=== PATIENT | female | born 1955 | race Caucasian/White ===

== ENCOUNTER → 2017-07-29 | Outpatient (CLI) | payer OTHER ==
[~2017-07-29] MED LIST: OXYC1TAB3 PO
[2017-07-29 13:38] LABS: BASO % 0.8 %; BASO ABS # 0.04 K/uL (0-0.2); COMPLETE YES; EOS % 3.4 %; HEMATOCRIT 39.1 % (37-47); IG% 0.4 %; LYMPH % 17.7 %; LYMPH ABS # 0.94 K/uL (1.2-3.4); MEAN CELL VOLUME 93.8 fL (80-100); MEAN CORPUSCULAR HEMOGLOBIN 31.4 pg (25-34); MEAN CORPUSCULAR HGB CONC 33.5 g/dl (32-36); MEAN PLATELET VOLUME 10.8 fL (7.4-10.4); MONO % 9.2 %; NEUT % 68.5 %; PLATELET COUNT 299 K/uL (130-400); RED BLOOD COUNT 4.17 M/uL (4.2-5.4); WHITE BLOOD COUNT 5.32 K/uL (4.8-10.8)
[2017-07-29 14:39] LABS: ALT/SGPT 25 U/L (12-78); AST/SGOT 14 U/L (15-37); BLOOD UREA NITROGEN 20 mg/dl (7-18); BUN/CREATININE RATIO 32.1 (10-20); CARBON DIOXIDE 26 mmol/L (21-32); CHLORIDE 106 mmol/L (98-107); CREATININE 0.62 mg/dl (0.60-1.20); GLUCOSE 84 mg/dl (70-99); POTASSIUM 3.4 mmol/L (3.5-5.1); SODIUM 140 mmol/L (136-145)
[2017-07-29 14:41] LABS: ALB/GLOB RATIO 0.9 (0.9-2); ALKALINE PHOSPHATASE 63 U/L (45-117); CHOLESTEROL 260 mg/dl (0-200); HDL CHOLESTEROL 87 mg/dl; LDL CHOLESTEROL CALCULATED 154 mg/dl; TRIGLYCERIDES 97 mg/dl (0-150); VERY LOW DENSITY LIPOPROT CALC 19 mg/dl
== END | disposition home or self-care (01) ==
LOC: C.LAB1850 12:24
PROVIDERS: ATTEND Nurse Practitioner Adult Health
DX: Z00.00 Encounter for general adult medical examination without abnormal findings (principal); R03.0 Elevated blood-pressure reading, without diagnosis of hypertension

== ENCOUNTER → 2017-09-16 | Outpatient (CLI) | payer OTHER ==
[~2017-09-16] MED LIST changes: +OXYC-90 PO; -OXYC1TAB3 PO
--- NOTE | 2017-09-17 14:36 | MAMMOGRAPHY REPORT ---
BILATERAL DIGITAL SCREENING MAMMOGRAM TOMOSYNTHESIS WITH CAD: 09/16/2017 CLINICAL HISTORY: Routine screening. TECHNIQUE: Breast tomosynthesis in addition to standard 2D mammography was performed. Current study was also evaluated with a Computer Aided Detection (CAD) system. COMPARISON: No prior exams were available for comparison. BREAST COMPOSITION: The tissue of both breasts is heterogeneously dense, which may obscure small mas ses. FINDINGS: No suspicious masses, calcifications, or areas of architectural distortion are noted in ei ther breast. IMPRESSION: ACR BI-RADS CATEGORY 1: NEGATIVE There is no mammographic evidence of malignancy. A 1 year screening mammogram is recommended. The pa tient will receive written notification of the results. Approximately 10% of breast cancers are not detected with mammography. A negative mammographic report should not delay biopsy if a clinically suggestive mass is present. Vee Corona M.D. ah/:09/16/2017 13:13:20 Risk Investigator: Britney KOROMA)(Jaylin), [facility] letter sent: Normal 1/2 BI-RADS Code: ACR BI-RADS Category 1: Negative
== END | disposition home or self-care (01) ==
LOC: C.MAMM 11:15
PROVIDERS: ATTEND Nurse Practitioner Adult Health
DX: Z12.31 Encounter for screening mammogram for malignant neoplasm of breast (principal)

== ENCOUNTER 2018-09-08 10:26 | Inpatient (IN) ==
[2018-09-08] MEDS ORDERED: LABETALOL HCL IV 5 MG/ML 20ML IV PRN (10:46)
--- NOTE | 2018-09-08 10:57 | CT Scan Report ---
CT head/brain wo con CLINICAL HISTORY: 63 years-old Female with Stroke evaluation . Acute strokelike symptoms TECHNIQUE: Multiple axial CT images of the head were obtained without contrast. A dose lowering tech nique was utilized adhering to the principles of ALARA. CT DOSE: 537.48 mGy.cm COMPARISON: CT 01/05/2008. FINDINGS: No acute intracranial hemorrhage, midline shift, intracranial mass, hydrocephalus, territorial ischem ia or abnormal extra-axial collection. The calvarium is intact. Mild mucosal thickening of the posterior ethmoid air cells. Mastoid air clifton ls and middle ear cavities are clear. Soft tissues and orbits are unremarkable. IMPRESSION: No acute intracranial abnormality. The above report was generated using voice recognition software. It may contain grammatical, syntax o r spelling errors. Electronically signed by: Eitan Selby M.D. 09/08/2018 10:56 AM
[2018-09-08] MEDS ORDERED: SODIUM CHLORIDE 0.9% 1000ML 1,000 ML IV SCH (11:00)
[2018-09-08 11:15] LABS: Basophils # (auto) 0.02 K/uL (0-0.2); Basophils % (auto) 0.4 %; Eosinophils # (auto) 0.17 K/uL (0-0.5); Hematocrit (blood only) 42.1 % (37-47); Immature Granulocytes # (auto) 0.02 K/uL (0.00-0.02); Immature Granulocytes % (auto) 0.4 %; Lymphocytes # (auto) 1.12 K/uL (1.2-3.4); Lymphocytes % (auto) 19.9 %; Mean Corpuscular Hgb Conc 33.3 g/dL (32-36); Mean Corpuscular Volume 91.7 fL (80-100); Mean Platelet Volume 10.7 fL (7.4-10.4); Monocytes # (auto) 0.49 K/uL (0.11-0.59); Monocytes % (auto) 8.7 %; Neutrophils # (auto) 3.81 K/uL (1.4-6.5); Neutrophils % (auto) 67.6 %; Platelet Count 260 K/uL (130-400); RDW Coefficient of Variation 13.6 % (11.5-14.5); RDW Standard Deviation 45.3 fL (36.4-46.3); Red Blood Count 4.59 M/uL (4.2-5.4); White Blood Count 5.63 K/uL (4.8-10.8)
[2018-09-08 11:33] LABS: BUN Creatinine Ratio 22.2 (10-20); Blood Urea Nitrogen 17 mg/dl (7-18); Calcium 9.5 mg/dl (8.5-10.1); Carbon Dioxide 23 mmol/L (21-32); Chloride 103 mmol/L (98-107); Creatinine Clr Calc Pharmacy 73.5 ml/min; Est GFR (African American) 93.1; Est GFR (Non-African American) 80.3; Glucose 109 mg/dl (70-99); Magnesium 2.2 mg/dl (1.8-2.4); Potassium 3.6 mmol/L (3.5-5.1); Sodium 137 mmol/L (136-145)
[2018-09-08 11:37] LABS: Troponin I < 0.015 ng/ml (0-0.045)
[2018-09-08 11:38] LABS: Partial Thromboplastin Ratio 0.9; Partial Thromboplastin Time 22.8 Seconds (21.0-31.0); Prothrombin Time 9.9 Seconds (9.0-12.0)
[2018-09-08] MEDS ORDERED: ASPIRIN 325 MG ECTAB PO STA (12:02)
[2018-09-08 12:36] LABS: Appearance Urine Clear (Clear); Bacteria Urine Automated Negative (Negative); Bilirubin Urine Negative (Negative); Cast Urine Automated 0 /lpf (0-5); Color Urine Yellow; Glucose Urine UA Negative (Negative); Ketones Urine Negative (Negative); Leukocyte Esterase Urine Trace (Negative); Nitrite Urine Negative (Negative); Protein Urine Negative (Negative); Specific Gravity Urine 1.015 (1.000-1.030); Urobilinogen Urine Negative (Negative)
[2018-09-08] MEDS ORDERED: BACLOFEN 10 MG TAB PO PRN (13:55)
[2018-09-08] MEDS ORDERED: ACETAMINOPHEN 325 MG TAB PO PRN (13:55)
[2018-09-08] MEDS ORDERED: IOVERSOL 100ml IV PRN (14:33)
--- NOTE | 2018-09-08 14:49 | CT Scan Report ---
CT angio neck with con CLINICAL HISTORY: Left neck pain with stroke-like symptoms COMPARISON STUDY: No previous studies for comparison. TECHNIQUE: CT angiography was performed from the aortic arch to the skull base. MIP imaging was perfo rmed. The patient was scanned in a dynamic helical fashion during intravenous administration of 93 cc of Optiray 320. A dose lowering technique was utilized adhering to the principles of ALARA. CT DOSE: Technique: CT angiogram of the carotid and vertebral arteries was obtained using intravenous contrast and 3-D reconstruction. NASCET criteria was utilized. Findings: The right carotid revealed no evidence of aneurysm and no evidence of dissection. There is no evidenc e of hemodynamic significant stenosis. The left carotid revealed no evidence of hemodynamic significant stenosis. There is no evidence of an eurysm. There is no evidence of dissection. There is no evidence of hemodynamically significant vertebral stenosis. There is no evidence of verte bral dissection. IMPRESSION: No evidence of hemodynamically significant carotid or vertebral artery stenosis. No evidence of disse ction. Electronically signed by: Silverio Trevino M.D. 09/08/2018 2:48 PM
--- NOTE | 2018-09-08 14:54 | CT Scan Report ---
CTA ANGIOGRAPHY OF THE HEAD CLINICAL HISTORY: Left neck pain with stroke-like symptoms. COMPARISON STUDY: Head CT performed earlier today. TECHNIQUE: Helical axial images of the head were obtained following uneventful intravenous administr ation of 90 cc of Optiray 320. Automated exposure control was utilized for the study. A dose loweri ng technique was utilized adhering to the principles of ALARA. CT DOSE: 524.05 mGy.cm FINDINGS: Please note that the CTA of the neck will be reported separately. No acute intracranial hem orrhage, midline shift or mass effect is present. Ventricular system is normal. The basilar cisterns are patent. There are no extra-axial collections. There is an opacified posterior left ethmoid air ce ll. There is trace fluid within the left mastoid air cells. Orbits are unremarkable. There is moderat e plaque within the bilateral cavernous carotids without significant stenosis. No dissection within t he intracranial vessels is present. No aneurysm or abrupt vessel cut off is identified. There is feta l persistence of the left posterior cerebral artery. There is a large right posterior communicating a rtery. IMPRESSION: 1. No intracranial aneurysm or abrupt vessel cut off. 2. Moderate atherosclerotic plaque within the bilateral cavernous carotids without significant stenos is. Electronically signed by: Jeffery Bucio M.D. 09/08/2018 2:53 PM
--- NOTE | 2018-09-08 15:05 | History & Physical Report ---
Date of Service September 08, 2018 Assessment & Plan (1) Paresthesias: Parthesias on left leg and left cheek which had resolved by admission. Concern for TIA. - MRI brain - CTA head/neck - Particularly looking for dissection given the left neck pain - Telemetry - Neurology consult - Echo for PFO (2) Headache: Headaches have been ongoing for 2-3 weeks after hearing a pop when pushing a heavy box at her work place. Reports it feels "tight" and improves with some massage. - Baclofen PRN - ESR/CRP to rule out giant cell arteritis given her hip pain - Neurology consult as above (3) DVT prophylaxis: Low risk - SCDs History of Present Illness Primary Care Provider: Zoraida Viveros MD 63yo F w/ hx of head/neck cancer s/p 3 resection surgeries in 2004 who presents for headache, facial numbness, and leg pain. Per patient, has been having recurrent headaches ~1x/day for the last 3 weeks after hearing a "pop" in her neck while pushing a heavy box at work. The headaches were in the posterior, left neck for at least a week or so. She describes the pain as a sharp, stabbing, "moving" pain which then resolves on its own. However, the headaches also moved to the left temporal area within the last week or so. This morning, she reports that she woke up and her left leg had a sharp, tingling pain in the left lateral knee area which then moved up to her left hip. She looked for a bruise, but did not see one and then went back to sleep. However, during the day (~8am), she reports some numbness on the left side of her face which gradually worsened. She reported to the hospital because she was worried about a stroke. She denies any dysphagia, dysarthria, facial droop, arm or leg strength changes , and any other sensation changes. Allergies Allergy/AdvReac Type Severity Reaction Status Date / Time Penicillins Allergy Mild SWELLING Unverified 09/08/18 11:52 A CHILD naproxen Allergy Unknown TONGUE Verified 09/08/18 11:52 SWELLING Home Medications Home Medications Medication Instructions Recorded Confirmed Type No Known Home Medications 09/08/18 09/08/18 History Past Med/Surg History Medical History Cancer of head and neck Facial droop mild-d/t radical neck dissection (cancer) Surgical History History of radical dissection of left side of neck Family History Other No significant family history Social History Current Living Situation: Spouse Other Information That Helps Us Care for You: No Feels Safe at Home: Yes Safety Concerns: Feels Safe At This Time Smoking Status: Never smoker Hx Alcohol Use: Yes Alcohol Intake Frequency: holidays/special occasions only Hx Substance Use: No Beliefs That Will Affect Care: None Preferred Language: Nepali Communication 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: 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 Review of Systems Constitutional: no fever, no chills and no sweats Eyes: no diplopia Ear, Nose, Mouth, Throat: no ear trauma, no nasal discharge and no dental pain Respiratory: no cough, no chest congestion and no dyspnea Cardiovascular: no chest pain, no dyspnea on exertion, no palpitations and no syncope Gastrointestinal: no abdominal pain, no belching, no constipation, no diarrhea/ loose stools, no blood in stools and no melena Musculoskeletal: no back pain, no joint pain and no muscle weakness Integumentary: no rash, no skin ulcer and no erythema Neurologic: + tingling (Leg) and + headache(s) (See HPI); no generalized weakness, no loss of sensation, no numbness and no paresthesia Psychiatric: no depression and no anxiety Endocrine: no fatigue, no polydipsia and no polyphagia Physical Exam 2 Vital Signs (Past 24 Hours): Last Vital Signs Temp 36.6 C 09/08/18 10:32 Pulse 70 09/08/18 14:27 Resp 20 09/08/18 13:34 BP 168/86 H 09/08/18 13:34 Pulse Ox 100 09/08/18 13:34 Constitutional: WD/WN, vitals as above Eyes: EOM intact bilaterally; no conjunctival abnormality ENMT: external ear and nose normal, oropharynx normal Neck: trachea midline, no thyromegaly normal visual inspection Respiratory: normal respiratory effort, lungs clear to auscultation no respiratory distress Cardiovascular: RRR, no murmur, no edema Gastrointestinal (Abdomen): Inspection/Auscultation: abdomen normal to inspection; abdomen not distended Musculoskeletal: no cyanosis or clubbing, extremities motor strength 5/5 Skin: no rashes, warm and dry Neurologic: moves all extremities and awake; no focal motor deficits and not confused Speech / Cognition: + abnormal speech (Mild dysarthria which is at baseline per patient and family) Psychiatric: Orientation: alert, oriented to person and cooperative _ (1) Headache Headache chronicity pattern: acute headache Headache type: unspecified Intractability: not intractable Qualified Code(s): R51 - Headache
--- NOTE | 2018-09-08 15:10 | XRay Report ---
ORBIT RADIOGRAPHS 3 VIEWS HISTORY: pre-MRI screening. COMPARISON: None. FINDINGS: There are no radiopaque foreign bodies identified within the orbits. IMPRESSION: No radiopaque foreign bodies identified within the orbits. Electronically signed by: Silverio Trevino M.D. 09/08/2018 3:09 PM
--- NOTE | 2018-09-08 16:41 | Magnetic Resonance Report ---
Brain MRI WITHOUT CONTRAST HISTORY: Left-sided facial numbness. Posterior headache. Stroke-like symptoms TECHNIQUE: Multiplanar multisequence MRI of the brain was performed without the use of contrast. COMPARISON STUDY: Head CT 09/08/2018. FINDINGS: There is no mass, hematoma, midline shift, or acute infarct. The mastoid air cells are jefferson r. Scattered foci of T2 hyperintensity seen within the periventricular and subcortical white matter a re nonspecific but suggestive of mild microvascular ischemic changes. The major vascular flow voids a t the skull base are well-maintained. Partial opacification of a left posterior ethmoid air cell. The ventricles and sulci are within normal limits for age. IMPRESSION: No acute intracranial abnormality. A few scattered foci of T2 hyperintensity seen within the perivent ricular and subcortical white matter are nonspecific but favor mild microvascular ischemic change. Electronically signed by: Allen Bowles M.D. 09/08/2018 4:40 PM
[2018-09-09 06:55] LABS: Hematocrit (blood only) 40.4 % (37-47); Hemoglobin 13.6 g/dL (12.0-16.0); Mean Corpuscular Hgb Conc 33.7 g/dL (32-36); Mean Corpuscular Volume 92.2 fL (80-100); Mean Platelet Volume 10.6 fL (7.4-10.4); Platelet Count 245 K/uL (130-400); RDW Coefficient of Variation 13.9 % (11.5-14.5); RDW Standard Deviation 46.9 fL (36.4-46.3); Red Blood Count 4.38 M/uL (4.2-5.4); White Blood Count 4.74 K/uL (4.8-10.8)
[2018-09-09 07:08] LABS: Estimated Average Glucose 117 mg/dl
[2018-09-09 07:33] LABS: BUN Creatinine Ratio 21.7 (10-20); Blood Urea Nitrogen 16 mg/dl (7-18); Calcium 8.8 mg/dl (8.5-10.1); Carbon Dioxide 24 mmol/L (21-32); Chloride 107 mmol/L (98-107); Cholesterol 252 mg/dl (0-200); Creatinine Clr Calc Pharmacy 75.4 ml/min; Est GFR (African American) 96.1; Est GFR (Non-African American) 82.9; Glucose 89 mg/dl (70-99); Magnesium 2.3 mg/dl (1.8-2.4); Potassium 3.8 mmol/L (3.5-5.1); Sodium 138 mmol/L (136-145)
[2018-09-09 07:36] LABS: C Reactive Protein < 0.29 mg/dl (0-0.29); Chol HDL Ratio 3; HDL Cholesterol 76 mg/dl; LDL Cholesterol Calculated 156 mg/dl; Triglycerides 100 mg/dl (0-150); VLDL Cholesterol 20 mg/dl
[2018-09-09] MEDS ORDERED: ASPIRIN 81 MG ECTAB PO SCH (09:00)
--- NOTE | 2018-09-09 10:19 | Neurology Consultation ---
Date of Consultation September 09, 2018 Assessment & Plan (1) TIA (transient ischemic attack): This is a 63-year-old right-handed female who presents with acute onset of left facial numbness which is now resolved concerning for possible TIA. Stroke risk factors include dyslipidemia and family history. Recommendations: Recommend aspirin 81 mg daily and a statin medication for dyslipidemia Avoid hypotension and dehydration Stroke risk factor modifications and recommendations: Blood pressure recommendations for the first month post hospital discharge 150/ 90-130/80, and after that blood pressure recommendations 130/80-110/70 Total cholesterol goal 100- 200 and LDL goal less than 100 Hemoglobin A1c goal less than 7 (at goal) Encourage cardiovascular exercise at least 3 times a week for 30 minutes. From a neurological standpoint, okay to be discharged today. Follow-up in neurology clinic in 1 month for post hospital follow-up. (2) Headache: Headache appears to be mostly musculoskeletal coming from the left neck. May have a component of occipital neuralgia as well. Recommendations: Agree with NSAIDs and muscle relaxer as needed. Can also do massage therapy, chiropractic therapy, or physical therapy as needed If continues to have sharp occipital headaches in the future, could consider referral to pain management for nerve injections. (3) Leg neuralgia: Burning pain in left lateral knee and left hip area appeared to be more of a focal neuralgia. Could be musculoskeletal or focal pinched nerve. Less likely to be radiculopathy based on history and symptoms. Can also treat conservatively with NSAIDs, muscle relaxers, and physical therapy if needed. If continues to have pain in the left lower extremity, can be seen back in neurology clinic for further evaluation and possible EMG. History of Present Illness Reason for Consultation: Consultation for strokelike symptoms and headache Attending Physician: Devon Rosas MD History of Present Illness This is a 63-year-old right-handed female who presents for the above evaluation. She reports that for the last 3 weeks she has been having a sharp headache in the left occipital region that shoots up. She reports she was moving a heavy box 3 weeks ago when she felt a pop in her neck. Since then she has been having sharp shooting headaches from the left side of her neck and left occipital area going up her head. She reports that these occur every 2- 3days randomly and will last for a few seconds. No radiculopathy to symptoms down the arms. On the day of presentation she noticed at work that she had a small area of burning sensation above and lateral to her left knee. A little while later she then noted the same burning sensation in the lateral left hip. And the knee burning sensation had resolved at that point. She reports that both areas of burning sensation of left leg and then resolved and a while later she noticed that her left cheek had suddenly gone numb. She reports that that lasted for a few hours and she was seen in the emergency room because of this. She reports that 13 years ago she did have some altered sensation in the left cheek after she had surgery for her head and neck cancer. Otherwise it sounds like this was a definite change in her sensory symptoms of the left cheek unexplainably. Patient denied any facial weakness. She does have some facial asymmetry secondary to her head and neck surgery. She denied any changes with her speech. No trouble swallowing. No changes with her vision. No discernible weakness. No changes with her gait. She reports that she currently does not have a headache and has no headache history of migraine headache history in the past. When she was being evaluated she was a little bit anxious but otherwise neurologically intact. She is never had any symptoms like this previously. She does have a significant family history of a mother who had TIAs when she was 68 and a sister who also had TIAs in her 70s. No other history concerning for seizures or strokes. MRI of the brain report and images reviewed by myself. Patient had a few nonspecific T2 hyperintensities in subcortical white matter but otherwise MRI was unremarkable. No signs of acute stroke. CTA of the head and neck was notable for moderate atherosclerotic plaque in the bilateral carotids Echocardiogram was unremarkable for cardioembolic sources of stroke ESR was normal at 14, hemoglobin A1c 5.7, total cholesterol 252, LDL 156, HDL 76 , and triglycerides 100 Past medical history significant for head and neck cancer status post surgery with mild facial asymmetry due to radical neck dissection on the left Family history significant for mother and sister with TIAs Social history: Patient is employed. Independent her activities of daily living. No tobacco use. Occasional alcohol use. No illegal drug use Allergies Allergy/AdvReac Type Severity Reaction Status Date / Time Penicillins Allergy Mild SWELLING Unverified 09/08/18 11:52 A CHILD naproxen Allergy Unknown TONGUE Verified 09/08/18 11:52 SWELLING Home Medications Home Medications Medication Instructions Recorded Confirmed Type No Known Home Medications 09/08/18 09/08/18 History Patient History Medical History Cancer of head and neck Facial droop mild-d/t radical neck dissection (cancer) Surgical History History of radical dissection of left side of neck Family History Other No significant family history Social History Current Living Situation: Spouse Other Information That Helps Us Care for You: No Feels Safe at Home: Yes Safety Concerns: Feels Safe At This Time Smoking Status: Never smoker Hx Alcohol Use: Yes Alcohol Intake Frequency: holidays/special occasions only Hx Substance Use: No Beliefs That Will Affect Care: None Preferred Language: Croatian Communication Ability: Effective Punch Hand Required: No Review of Systems Complete review of systems otherwise negative except for the above-noted in HPI Physical Exam 2 Vital Signs (Past 24 Hours): Last Vital Signs Temp 36.6 C 09/09/18 07:48 Pulse 67 09/09/18 07:48 Resp 18 09/09/18 07:48 BP 127/83 09/09/18 07:48 Pulse Ox 94 09/09/18 07:48 Physical Exam: Gen.: Patient is alert and oriented in no acute distress sitting in chair Heart: Regular rate and rhythm Extremities: No gross deformities or rashes noted Neurological examination: Mental status: Patient is alert and oriented to person place and time. Able to give his own history. Attention concentration normal for the situation. Remote and recent memory intact Speech is fluent without any dysarthria or aphasia noted Cranial nerves: Visual alvarez intact. Funduscopic examination was unremarkable with no signs of papilledema. Pupils equally round and reactive to light. Extraocular muscles intact without nystagmus. No facial asymmetry noted. Mild facial asymmetry on the left but otherwise appear to have full facial movements and strength. Tongue midline. Good palatal elevation. Good shoulder shrug bilaterally. Hearing grossly intact voice. Strength: 5/5 both proximal and distal in all extremities .Tone is normal. Sensation: Grossly intact to light touch in all extremities Deep tendon reflexes: +2 in bilateral biceps and patellar. Coordination: Patient has good finger to nose without dysmetria. Station within the chair is normal. _ (1) Headache Headache chronicity pattern: acute headache Headache type: unspecified Intractability: not intractable Qualified Code(s): R51 - Headache
--- NOTE | 2018-09-09 17:52 | Discharge Summary ---
Date of Service September 09, 2018 Admission HPI Per Admitting Provider 63yo F w/ hx of head/neck cancer s/p 3 resection surgeries in 2004 who presents for headache, facial numbness, and leg pain. Per patient, has been having recurrent headaches ~1x/day for the last 3 weeks after hearing a "pop" in her neck while pushing a heavy box at work. The headaches were in the posterior, left neck for at least a week or so. She describes the pain as a sharp, stabbing, "moving" pain which then resolves on its own. However, the headaches also moved to the left temporal area within the last week or so. This morning, she reports that she woke up and her left leg had a sharp, tingling pain in the left lateral knee area which then moved up to her left hip. She looked for a bruise, but did not see one and then went back to sleep. However, during the day (~8am), she reports some numbness on the left side of her face which gradually worsened. She reported to the hospital because she was worried about a stroke. She denies any dysphagia, dysarthria, facial droop, arm or leg strength changes , and any other sensation changes. Principal Diagnosis Headache, possible TIA Discharge Exam Constitutional WD/WN, vitals as above Eyes EOM intact bilaterally; no conjunctival abnormality ENMT external ear and nose normal, oropharynx normal Neck trachea midline, no thyromegaly normal visual inspection Respiratory normal respiratory effort, lungs clear to auscultation no respiratory distress Cardiovascular RRR, no murmur, no edema Gastrointestinal (Abdomen) Inspection/Auscultation: abdomen normal to inspection; abdomen not distended Musculoskeletal no cyanosis or clubbing, extremities motor strength 5/5 Skin no rashes, warm and dry Neurologic moves all extremities and awake; no focal motor deficits and not confused Speech / Cognition: + abnormal speech (Mild dysarthria which is at baseline per patient and family) Psychiatric Orientation: alert, oriented to person and cooperative Discharge Data Allergies Allergy/AdvReac Type Severity Reaction Status Date / Time Penicillins Allergy Mild SWELLING Unverified 09/08/18 11:52 A CHILD naproxen Allergy Unknown TONGUE Verified 09/08/18 11:52 SWELLING Consultations 09/08/18 12:16 ED Decision to Admit Stat 09/08/18 13:55 Consult Neurology Routine Ordered Studies 09/08/18 10:47 CT head/brain wo con Stat 09/08/18 13:55 CT angio head w con Urgent CT angio neck with con Urgent MR brain wo con Urgent Hospital Course (1) Paresthesias: Parthesias on left leg and left cheek which had resolved by admission. Concern for TIA. MRI brain, CTA head/neck all were good. No CVA seen. Echo was done and did not show PFO. Seen by Dr. Colindres who felt this could not be ruled out as a TIA, so we started ASA 81mg and a lower-dose statin. Will follow up in 1 month with neurology. (2) Headache: Headaches have been ongoing for 2-3 weeks after hearing a pop when pushing a heavy box at her work place. Reports it feels "tight" and improves with some massage. ESR/CRP are normal, so don't think this is autoimmune. Discussed using PRN ibuprofen, baclofen, and a warm compress to help with muscle tension. Will see her PCP if the pain doesn't improve in 1-2 weeks. Total Time Total Time Spent Total Time Spent (In Minutes): 35 Total Time Includes: Examination of the Patient, Discharge Planning, Medication Reconciliation and Communication With Other Providers Discharge Plan Discharge Items Patient Disposition: Home - Self-Care Reason For Visit: POSSIBLE STROKE Discharge Diagnosis: TIA vs. headache Discharge Goals: Improve function Activity: Resume your previous activity Non-emergency contact: Primary Care Provider Call non-emergency contact if: you have any medication questions, your symptoms worsen and your pain is unusual for you Follow-up/Referrals: Luana Colindres DO [Physician] - (Please see Dr. Colindres in 1 month.) Zoraida Viveros MD [Primary Care Provider] - (Please keep your appointment with Dr. Viveros in November unless your neck pain continues, then see her sooner.) Diet: Regular Addtl Provider Instructions: Ms. Deleon, You were admitted to the hospital with left-sided headache, facial numbness, and left leg pain. We were worried about a stroke, and did testing to help rule that out. Your MRI of your head did not show any stroke which is good! We also checked the arteries in your head and neck and did not find any blockages or areas where the arteries were narrowed. This is also good! Dr. Colindres (the neurologist) saw you, and would like you to start a baby aspirin and a low-dose statin to help improve your cholesterol. You will see her again in a month to be sure you're doing well. Please use the muscle relaxer in the evenings and do not drive or operate machinery with it to be sure it does not make you tired or fatigued. For the neck pain, you can also take occasional ibuprofen, use warm water compresses, and some gentle massage, as we talked about. If it doesn't get better over 1-2 weeks, please see Dr. Viveros sooner than your November appointment. Please return to the hospital with any weakness, numbness, trouble speaking or swallowing, or any other concerning symptoms. Risk Factors for Stroke: You can reduce your chances of stroke by working with your medical provider to adopt a healthy lifestyle. Some specific ways to lower your chance of stroke are: * If you are a smoker, now is the time to stop smoking cigarettes * If you are diabetic, improve the control of your blood sugars * Avoid excessive amounts of alcohol * Control high blood pressure * Lose weight if you are overweight * Be sure to lead an active lifestyle * Eat a healthy diet low in salt, cholesterol and fat You should know about other risk factors for stroke that you are unable to control. These include: * Age 55 years or older * Male gender * Certain racial groups: , or / * Family History of Stroke, Mini stroke or Heart Attack * Sickle Cell Disease Follow Up: It is important for you to keep your follow up appointments with your medical provider. Who to Call and When: Medical Emergencies: Call 911 immediately if you experience any of the following warning signs and symptoms of Stroke: * Sudden numbness or weakness of the face, arm or leg, especially on one side of the body * Sudden confusion, trouble speaking or understanding * Sudden trouble seeing in one or both eyes * Sudden trouble walking, dizziness, loss of balance or coordination * Sudden severe headache with no cause Do not delay calling 911 if you experience any warning signs or symptoms of a stroke. Delay in seeking medical attention may affect what treatments can be given to you. . Prescriptions: New aspirin [Ecotrin Low Strength] 81 mg Tablet,Delayed Release (Dr/Ec) 81 mg PO DAILY Qty: 30 RF: 0 baclofen 10 mg Tablet 5 mg PO TID PRN (Reason: muscle spasm) Qty: 20 RF: 0 atorvastatin 20 mg tablet 20 mg PO HS Qty: 30 RF: 1 Continue No Known Home Medications RF: 0 Visit Report Forms: [facility] Stand-Alone Forms: [facility] Discharge Orders: Discharge Order (Routine); Ordered 09/09/18 Ordered By: Devon Rosas Admission Data Admit Date/Time: 09/08/18 13:13 Attending Provider: Devon Rosas Admit Provider: Devon Rosas Primary Care Provider: Zoraida Viveros Other Providers: Demetrio Pryor ; Luana Colindres Service: Medical Other Interventions: Discharge Summary Assessment (RN) Last Done: 09/09/18 11:29 DC Date/Time DO NOT enter until pt leaves facility: 09/09/18 13:52
--- NOTE | 2018-09-10 20:51 | Emergency Department Note ---
Entered by Aranza Fernandez acting as a scribe for History of Present Illness General Chief complaint: Neuro Symptoms/Deficit Stated complaint: POSSIBLE STROKE Time Seen by Provider: 09/08/18 10:36 Source: patient History of Present Illness Onset (ago): hour(s) 4 Location: head Radiation: other (back of head ) Severity: similar to prior episodes Pain Consistency: + constant Quality: + aching Associated symptoms: + other (positive burning feeling above left knee; positive burning feeling in left hip; positive left sided facial numbness; negative lightheadedness; negative vision changes; negative speech changes; positive slow speech; negative slurred speech; positive swollen face); no fever/ chills The patient is a 63 year old female who presents to the Emergency Room with complaints of a constant headache that began at 0630 this morning, 4 hours prior to arrival. The patient states that this pain begins at the base of her head and is "shooting up" the back of her head. She states that she has had this headache intermittently recently. The patient states that at this time she also noticed a burning feeling above her left knee. She states that this feeling then moved to her left hip. The patient states that then the left side of her face became numb. She states that she is able to walk but it is more difficult than usual, and denies lightheadedness, fevers, chills, vision changes , or speech changes. Per the patient's daughter, the patient's speech is slower than normal, but denies slurring speech in the patient. The patient's daughter also states that the patient's face is somewhat swollen from baseline, but denies any facial droop in the patient. 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 The patient denies any recent medication changes. Upon my evaluation, pt made a stroke alert and rushed to CT head. 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 and A total of 10 systems reviewed and were otherwise negative Physical Exam Vital Signs Vital Signs - 24 hr 09/08/18 10:32 09/08/18 10:41 09/08/18 11:17 Temperature 97.9 F Temperature Source Oral Sepsis Recent Fever Within 48 Hours No Sepsis New/Unexplained Change in Mental Status No Sepsis Action Taken by Nursing No Action Required Pulse Rate 95 H Pulse Rate [Left] 88 Respiratory Rate 18 20 Respiratory Effort / Characteristics Non-Labored Spontaneous Respiratory Depth Normal Respiratory Pattern Regular Blood Pressure 190/105 H Blood Pressure [Right Arm] 172/104 H Blood Pressure Mean 133 Blood Pressure Mean [Right Arm] 126 Blood Pressure Position Lying Pulse Oximetry 100 100 97 Oxygen Delivery Method Room Air Room Air Room Air 09/08/18 11:30 09/08/18 11:45 09/08/18 12:00 Temperature Temperature Source Sepsis Recent Fever Within 48 Hours Sepsis New/Unexplained Change in Mental Status Sepsis Action Taken by Nursing Pulse Rate Pulse Rate [Left] 75 81 75 Respiratory Rate 20 16 20 Respiratory Effort / Characteristics Non-Labored Spontaneous Respiratory Depth Normal Respiratory Pattern Regular Blood Pressure Blood Pressure [Right Arm] 171/90 H 171/86 H 159/89 H Blood Pressure Mean Blood Pressure Mean [Right Arm] 117 114 112 Blood Pressure Position Pulse Oximetry 99 97 96 Oxygen Delivery Method Room Air Room Air Room Air 09/08/18 12:14 09/08/18 12:15 09/08/18 13:34 Temperature Temperature Source Sepsis Recent Fever Within 48 Hours Sepsis New/Unexplained Change in Mental Status Sepsis Action Taken by Nursing Pulse Rate 74 Pulse Rate [Left] 77 Respiratory Rate 20 20 Respiratory Effort / Characteristics Respiratory Depth Respiratory Pattern Blood Pressure 168/86 H Blood Pressure [Right Arm] 141/94 H Blood Pressure Mean Blood Pressure Mean [Right Arm] 109 Blood Pressure Position Pulse Oximetry 100 100 Oxygen Delivery Method Room Air Room Air Room Air GENERAL: alert, well appearing, well nourished, no distress, non-toxic, obvious post surgical changes to the head and neck EYE EXAM: normal conjunctiva, PERRL and EOM's grossly intact OROPHARYNX: no exudate, no erythema, lips, buccal mucosa, and mucous membranes are moist. Tongue deviation to the right. Post-surgical abnormalities to the left soft palette and posterior pharynx. NECK: supple, no nuchal rigidity, no adenopathy, non-tender. Mild left face and neck post operative deformity. LUNGS: Clear to auscultation. Normal chest wall mechanics HEART: no murmurs, S1 normal and S2 normal ABDOMEN: abdomen soft, non-tender, normo-active bowel sounds, no masses, no rebound or guarding. BACK: Back is symmetrical on inspection and there is no deformity, no midline tenderness, no CVA tenderness. SKIN: no rashes and no bruising UPPER EXTREMITIES: upper extremities are grossly normal. FROM, nml pulses b/l. Equal 5/5 strength. LOWER EXTREMITIES: No pitting edema. Weakness to the left lower extremity. No ataxia. Subjective altered sensation to the left lower extremity. Normal pulses. NEURO EXAM: Normal sensorium, cranial nerves II-XII intact, normal speech, no weakness of arms, no weakness of legs. NIHSS <4 if accounting for family description that facial abnormalities and speech are normal post surgery. Course 1033: Past medical records reviewed. The patient was evaluated in room C9, and a complete history and physical examination were performed. 1047: The patient was moved to room A1. 1049: I discussed the case with Dr. Jacobsen Neurology and informed him of the patient's symptoms. 1112: The patient is being evaluated by Dr. Jacobsen Neurology. Pt not a tPA candidate. 1205: I discussed the case with Dr. Jacobsen Neurology who recommends an MRI and MRA of the head, ASA, and admission for additional evaluation. 1216: I discussed the case with Dr. Nessa Cortez Hospitalist who will further evaluate the patient. Consultations Consultation #1: I discussed the case with Dr. Jacobsen Neurology who recommends an MRI and MRA of the head. Time: 12:05 Consultation #2: I discussed the case with Dr. Nessa Cortez Hospitalist who will further evaluate the patient. Time: 12:16 Administered Medications Discontinued Medications Aspirin (Ecotrin) 325 mg PO NOW STA Stop: 09/08/18 12:03 Last Admin: 09/08/18 12:24 Dose: 325 mg Aspirin (Ecotrin) 81 mg PO DAILY TONY Stop: 10/09/18 08:59 Last Admin: 09/09/18 08:10 Dose: 81 mg Sodium Chloride (Nss 1000ml) 1,000 mls @ 50 mls/hr IV .Q20H TONY Stop: 10/08/18 10:59 Last Infusion: 09/08/18 13:57 Dose: 0 mls/hr Infusion: 09/08/18 12:20 Dose: 150 mls/hr Admin: 09/08/18 11:06 Dose: 50 mls/hr Ioversol (Optiray 320 100ml) 93 ml IV ONCE PRN PRN Reason: Interaction Checking Stop: 09/12/18 14:32 Last Admin: 09/08/18 14:33 Dose: 93 ml Medical Decision Making Differential Diagnosis Differential includes acute coronary syndrome, myocardial infarction, CVA, TIA , anemia, infection, pneumonia, UTI, pyelonephritis, poor nutrition, dehydration , electrolyte disturbance,hypoglycemia, and others were considered. Medical Records Attestation: I reviewed the patient's medical records. Home Medications Current Medication List: was personally reviewed by me Laboratory Data Attestation: I reviewed the patient's lab results. Result diagrams: 09/09/18 06:06 09/09/18 06:06 Lab Results 09/08/18 09/08/18 09/08/18 Range/Units 10:55 10:55 10:55 WBC 5.63 (4.8-10.8) K/uL RBC 4.59 (4.2-5.4) M/uL Hgb 14.0 (12.0-16.0) g/dL Hct 42.1 (37-47) % MCV 91.7 (80-100) fL MCH 30.5 (25-34) pg MCHC 33.3 (32-36) g/dL RDW Std Deviation 45.3 (36.4-46.3) fL RDW Coeff of Abilio 13.6 (11.5-14.5) % Plt Count 260 (130-400) K/uL MPV 10.7 H (7.4-10.4) fL Immature Gran % (Auto) 0.4 % Neut % (Auto) 67.6 % Lymph % (Auto) 19.9 % Elk % (Auto) 8.7 % Eos % (Auto) 3.0 % Baso % (Auto) 0.4 % Immature Gran # (Auto) 0.02 (0.00-0.02) K/uL Neut # (Auto) 3.81 (1.4-6.5) K/uL Lymph # (Auto) 1.12 L (1.2-3.4) K/uL Elk # (Auto) 0.49 (0.11-0.59) K/uL Eos # (Auto) 0.17 (0-0.5) K/uL Baso # (Auto) 0.02 (0-0.2) K/uL ESR (0-21) mm/hr PT 9.9 (9.0-12.0) Seconds INR 1.0 (0.9-1.1) APTT 22.8 (21.0-31.0) Seconds PTT Ratio 0.9 Sodium 137 (136-145) mmol/L Potassium 3.6 (3.5-5.1) mmol/L Chloride 103 (98-107) mmol/L Carbon Dioxide 23 (21-32) mmol/L Anion Gap 11.0 (3-11) BUN 17 (7-18) mg/dl Creatinine 0.78 (0.6-1.2) mg/dl Est Cr Clr Drug Dosing 73.5 ml/min Est GFR ( Amer) 93.1 Est GFR (Non-Af Amer) 80.3 BUN/Creatinine Ratio 22.2 H (10-20) Glucose 109 H (70-99) mg/dl POC Glucose (70-99) Estimat Average Glucose mg/dl Hemoglobin A1c (4.5-5.6) % Calcium 9.5 (8.5-10.1) mg/dl Magnesium 2.2 (1.8-2.4) mg/dl Troponin I < 0.015 (0-0.045) ng/ml C-Reactive Protein (0-0.29) mg/dl Triglycerides (0-150) mg/dl Cholesterol (0-200) mg/dl LDL Cholesterol, Calc mg/dl VLDL Cholesterol, Calc mg/dl HDL Cholesterol mg/dl Cholesterol/HDL Ratio Urine Color Urine Appearance (Clear) Urine pH (4.5-7.5) Ur Specific [place] (1.000-1.030) Urine Protein (Negative) Urine Glucose (UA) (Negative) Urine Ketones (Negative) Urine Blood (Negative) Urine Nitrite (Negative) Urine Bilirubin (Negative) Urine Urobilinogen (Negative) Ur Leukocyte Esterase (Negative) Urine WBC (Auto) (0-5) /hpf Urine RBC (Auto) (0-4) /hpf U Hyaline Cast (Auto) (0-5) /lpf U Epithel Cells (Auto) (0-5) /lpf Urine Bacteria (Auto) (Negative) Blood Type Antibody Screen 09/08/18 09/08/18 09/08/18 Range/Units 10:55 11:00 12:20 WBC (4.8-10.8) K/uL RBC (4.2-5.4) M/uL Hgb (12.0-16.0) g/dL Hct (37-47) % MCV (80-100) fL MCH (25-34) pg MCHC (32-36) g/dL RDW Std Deviation (36.4-46.3) fL RDW Coeff of Abilio (11.5-14.5) % Plt Count (130-400) K/uL MPV (7.4-10.4) fL Immature Gran % (Auto) % Neut % (Auto) % Lymph % (Auto) % Elk % (Auto) % Eos % (Auto) % Baso % (Auto) % Immature Gran # (Auto) (0.00-0.02) K/uL Neut # (Auto) (1.4-6.5) K/uL Lymph # (Auto) (1.2-3.4) K/uL Elk # (Auto) (0.11-0.59) K/uL Eos # (Auto) (0-0.5) K/uL Baso # (Auto) (0-0.2) K/uL ESR (0-21) mm/hr PT (9.0-12.0) Seconds INR (0.9-1.1) APTT (21.0-31.0) Seconds PTT Ratio Sodium (136-145) mmol/L Potassium (3.5-5.1) mmol/L Chloride (98-107) mmol/L Carbon Dioxide (21-32) mmol/L Anion Gap (3-11) BUN (7-18) mg/dl Creatinine (0.6-1.2) mg/dl Est Cr Clr Drug Dosing ml/min Est GFR ( Amer) Est GFR (Non-Af Amer) BUN/Creatinine Ratio (10-20) Glucose (70-99) mg/dl POC Glucose 100 H (70-99) Estimat Average Glucose mg/dl Hemoglobin A1c (4.5-5.6) % Calcium (8.5-10.1) mg/dl Magnesium (1.8-2.4) mg/dl Troponin I (0-0.045) ng/ml C-Reactive Protein (0-0.29) mg/dl Triglycerides (0-150) mg/dl Cholesterol (0-200) mg/dl LDL Cholesterol, Calc mg/dl VLDL Cholesterol, Calc mg/dl HDL Cholesterol mg/dl Cholesterol/HDL Ratio Urine Color Yellow Urine Appearance Clear (Clear) Urine pH 7.0 (4.5-7.5) Ur Specific [place] 1.015 (1.000-1.030) Urine Protein Negative (Negative) Urine Glucose (UA) Negative (Negative) Urine Ketones Negative (Negative) Urine Blood Negative (Negative) Urine Nitrite Negative (Negative) Urine Bilirubin Negative (Negative) Urine Urobilinogen Negative (Negative) Ur Leukocyte Esterase Trace H (Negative) Urine WBC (Auto) 1-5 (0-5) /hpf Urine RBC (Auto) 0-4 (0-4) /hpf U Hyaline Cast (Auto) 0 (0-5) /lpf U Epithel Cells (Auto) 5-10 H (0-5) /lpf Urine Bacteria (Auto) Negative (Negative) Blood Type A Negative Antibody Screen NEGATIVE 09/08/18 09/09/18 09/09/18 Range/Units 21:00 06:06 06:06 WBC 4.74 L (4.8-10.8) K/uL RBC 4.38 (4.2-5.4) M/uL Hgb 13.6 (12.0-16.0) g/dL Hct 40.4 (37-47) % MCV 92.2 (80-100) fL MCH 31.1 (25-34) pg MCHC 33.7 (32-36) g/dL RDW Std Deviation 46.9 H (36.4-46.3) fL RDW Coeff of Abilio 13.9 (11.5-14.5) % Plt Count 245 (130-400) K/uL MPV 10.6 H (7.4-10.4) fL Immature Gran % (Auto) % Neut % (Auto) % Lymph % (Auto) % Elk % (Auto) % Eos % (Auto) % Baso % (Auto) % Immature Gran # (Auto) (0.00-0.02) K/uL Neut # (Auto) (1.4-6.5) K/uL Lymph # (Auto) (1.2-3.4) K/uL Elk # (Auto) (0.11-0.59) K/uL Eos # (Auto) (0-0.5) K/uL Baso # (Auto) (0-0.2) K/uL ESR 14 (0-21) mm/hr PT (9.0-12.0) Seconds INR (0.9-1.1) APTT (21.0-31.0) Seconds PTT Ratio Sodium (136-145) mmol/L Potassium (3.5-5.1) mmol/L Chloride (98-107) mmol/L Carbon Dioxide (21-32) mmol/L Anion Gap (3-11) BUN (7-18) mg/dl Creatinine (0.6-1.2) mg/dl Est Cr Clr Drug Dosing ml/min Est GFR ( Amer) Est GFR (Non-Af Amer) BUN/Creatinine Ratio (10-20) Glucose (70-99) mg/dl POC Glucose 86 (70-99) Estimat Average Glucose mg/dl Hemoglobin A1c (4.5-5.6) % Calcium (8.5-10.1) mg/dl Magnesium (1.8-2.4) mg/dl Troponin I (0-0.045) ng/ml C-Reactive Protein (0-0.29) mg/dl Triglycerides (0-150) mg/dl Cholesterol (0-200) mg/dl LDL Cholesterol, Calc mg/dl VLDL Cholesterol, Calc mg/dl HDL Cholesterol mg/dl Cholesterol/HDL Ratio Urine Color Urine Appearance (Clear) Urine pH (4.5-7.5) Ur Specific [place] (1.000-1.030) Urine Protein (Negative) Urine Glucose (UA) (Negative) Urine Ketones (Negative) Urine Blood (Negative) Urine Nitrite (Negative) Urine Bilirubin (Negative) Urine Urobilinogen (Negative) Ur Leukocyte Esterase (Negative) Urine WBC (Auto) (0-5) /hpf Urine RBC (Auto) (0-4) /hpf U Hyaline Cast (Auto) (0-5) /lpf U Epithel Cells (Auto) (0-5) /lpf Urine Bacteria (Auto) (Negative) Blood Type Antibody Screen 09/09/18 09/09/18 09/09/18 Range/Units 06:06 06:06 07:32 WBC (4.8-10.8) K/uL RBC (4.2-5.4) M/uL Hgb (12.0-16.0) g/dL Hct (37-47) % MCV (80-100) fL MCH (25-34) pg MCHC (32-36) g/dL RDW Std Deviation (36.4-46.3) fL RDW Coeff of Abilio (11.5-14.5) % Plt Count (130-400) K/uL MPV (7.4-10.4) fL Immature Gran % (Auto) % Neut % (Auto) % Lymph % (Auto) % Elk % (Auto) % Eos % (Auto) % Baso % (Auto) % Immature Gran # (Auto) (0.00-0.02) K/uL Neut # (Auto) (1.4-6.5) K/uL Lymph # (Auto) (1.2-3.4) K/uL Elk # (Auto) (0.11-0.59) K/uL Eos # (Auto) (0-0.5) K/uL Baso # (Auto) (0-0.2) K/uL ESR (0-21) mm/hr PT (9.0-12.0) Seconds INR (0.9-1.1) APTT (21.0-31.0) Seconds PTT Ratio Sodium 138 (136-145) mmol/L Potassium 3.8 (3.5-5.1) mmol/L Chloride 107 (98-107) mmol/L Carbon Dioxide 24 (21-32) mmol/L Anion Gap 7.0 (3-11) BUN 16 (7-18) mg/dl Creatinine 0.76 (0.6-1.2) mg/dl Est Cr Clr Drug Dosing 75.4 ml/min Est GFR ( Amer) 96.1 Est GFR (Non-Af Amer) 82.9 BUN/Creatinine Ratio 21.7 H (10-20) Glucose 89 (70-99) mg/dl POC Glucose 101 H (70-99) Estimat Average Glucose 117 mg/dl Hemoglobin A1c 5.7 H (4.5-5.6) % Calcium 8.8 (8.5-10.1) mg/dl Magnesium 2.3 (1.8-2.4) mg/dl Troponin I (0-0.045) ng/ml C-Reactive Protein < 0.29 (0-0.29) mg/dl Triglycerides 100 (0-150) mg/dl Cholesterol 252 H (0-200) mg/dl LDL Cholesterol, Calc 156 mg/dl VLDL Cholesterol, Calc 20 mg/dl HDL Cholesterol 76 mg/dl Cholesterol/HDL Ratio 3 Urine Color Urine Appearance (Clear) Urine pH (4.5-7.5) Ur Specific [place] (1.000-1.030) Urine Protein (Negative) Urine Glucose (UA) (Negative) Urine Ketones (Negative) Urine Blood (Negative) Urine Nitrite (Negative) Urine Bilirubin (Negative) Urine Urobilinogen (Negative) Ur Leukocyte Esterase (Negative) Urine WBC (Auto) (0-5) /hpf Urine RBC (Auto) (0-4) /hpf U Hyaline Cast (Auto) (0-5) /lpf U Epithel Cells (Auto) (0-5) /lpf Urine Bacteria (Auto) (Negative) Blood Type Antibody Screen 09/09/18 Range/Units 11:35 WBC (4.8-10.8) K/uL RBC (4.2-5.4) M/uL Hgb (12.0-16.0) g/dL Hct (37-47) % MCV (80-100) fL MCH (25-34) pg MCHC (32-36) g/dL RDW Std Deviation (36.4-46.3) fL RDW Coeff of Abilio (11.5-14.5) % Plt Count (130-400) K/uL MPV (7.4-10.4) fL Immature Gran % (Auto) % Neut % (Auto) % Lymph % (Auto) % Elk % (Auto) % Eos % (Auto) % Baso % (Auto) % Immature Gran # (Auto) (0.00-0.02) K/uL Neut # (Auto) (1.4-6.5) K/uL Lymph # (Auto) (1.2-3.4) K/uL Elk # (Auto) (0.11-0.59) K/uL Eos # (Auto) (0-0.5) K/uL Baso # (Auto) (0-0.2) K/uL ESR (0-21) mm/hr PT (9.0-12.0) Seconds INR (0.9-1.1) APTT (21.0-31.0) Seconds PTT Ratio Sodium (136-145) mmol/L Potassium (3.5-5.1) mmol/L Chloride (98-107) mmol/L Carbon Dioxide (21-32) mmol/L Anion Gap (3-11) BUN (7-18) mg/dl Creatinine (0.6-1.2) mg/dl Est Cr Clr Drug Dosing ml/min Est GFR ( Amer) Est GFR (Non-Af Amer) BUN/Creatinine Ratio (10-20) Glucose (70-99) mg/dl POC Glucose 107 H (70-99) Estimat Average Glucose mg/dl Hemoglobin A1c (4.5-5.6) % Calcium (8.5-10.1) mg/dl Magnesium (1.8-2.4) mg/dl Troponin I (0-0.045) ng/ml C-Reactive Protein (0-0.29) mg/dl Triglycerides (0-150) mg/dl Cholesterol (0-200) mg/dl LDL Cholesterol, Calc mg/dl VLDL Cholesterol, Calc mg/dl HDL Cholesterol mg/dl Cholesterol/HDL Ratio Urine Color Urine Appearance (Clear) Urine pH (4.5-7.5) Ur Specific [place] (1.000-1.030) Urine Protein (Negative) Urine Glucose (UA) (Negative) Urine Ketones (Negative) Urine Blood (Negative) Urine Nitrite (Negative) Urine Bilirubin (Negative) Urine Urobilinogen (Negative) Ur Leukocyte Esterase (Negative) Urine WBC (Auto) (0-5) /hpf Urine RBC (Auto) (0-4) /hpf U Hyaline Cast (Auto) (0-5) /lpf U Epithel Cells (Auto) (0-5) /lpf Urine Bacteria (Auto) (Negative) Blood Type Antibody Screen Imaging Data Radiologist's Impression: Radiology results as stated below per my review and the radiologist's interpretation: CT head/brain wo con CLINICAL HISTORY: 63 years-old Female with Stroke evaluation . Acute strokelike symptoms TECHNIQUE: Multiple axial CT images of the head were obtained without contrast. A dose lowering technique was utilized adhering to the principles of ALARA. CT DOSE: 537.48 mGy.cm COMPARISON: CT 01/05/2008. FINDINGS: No acute intracranial hemorrhage, midline shift, intracranial mass, hydrocephalus, territorial ischemia or abnormal extra-axial collection. The calvarium is intact. Mild mucosal thickening of the posterior ethmoid air cells. Mastoid air cells and middle ear cavities are clear. Soft tissues and orbits are unremarkable. IMPRESSION: No acute intracranial abnormality. The above report was generated using voice recognition software. It may contain grammatical, syntax or spelling errors. Electronically signed by: Eitan Selby M.D. 09/08/2018 10:56 AM ECG Data Attestation: I personally reviewed and interpreted this ECG as follows: Indication: weakness Rate (beats per minute): 88 Rhythm: sinus rhythm Findings: + other (normal axis; normal intervals; ); no acute ischemic change and no ectopy Blood Pressure Blood Pressure Findings: Elevated blood pressure Blood Pressure Disposition: further management by hospitalist MDM Narrative Pt well appearing here, but appreciable LLE weakness present. Pt states all sypmtoms began suddenly at 0630. Given sx have persisted and unclear etiology including possible CVA, pt made a stroke alert and taken to CT and case discussed with automotive professional [facility] Neurology. No ICH on CT, per neurology recommendation, pt given ASA, case discussed with hospitalist for additional evaluation/mgmt. Pt hemodynamically stable throughout. No worsening symptoms, however no improvement. Impression & Plan Weakness of left lower extremity, Paresthesias, Headache Discharge Plan Visit Data *Final* Discharge Date/Time: 09/08/18 13:34 Chief Complaint: Neuro Symptoms/Deficit Stated Complaint: POSSIBLE STROKE ED Provider: Katlyn Gastelum Discharge Problem: Weakness of left lower extremity, Paresthesias, Headache Patient Disposition: Admitted As Inpatient Discharge Instructions Interventions: ED Discharge Assessment Last Done: 09/08/18 13:34 Queries: Stroke Queries Contraindication Not Initiating IV-Tpa: Treatment not indicated Onset of Symptoms Date: 09/08/18 Onset of Symptoms Time: 06:30 The adelaidaibe's documentation has been prepared under my direction and personally reviewed by me in its entirety. I confirm that the note above accurately reflects all work, treatment, procedures, and medical decision making performed by me.
== END 2018-09-09 13:52 | disposition home or self-care (01) | DRG 69 ==
LOC: ED 10:26 → 2N 13:13

== ENCOUNTER 2025-05-01 05:44 | Observation (INO) ==
--- NOTE | 2025-04-02 15:13 | PAT Medication Instructions ---
Medication Instructions Date of Service April 02, 2025 Home Medications Medication Instructions Recorded aspirin 81 mg tablet,delayed 81 mg PO DAILY #30 tabs 09/09/18 release (Ecotrin Low Strength) lorazepam 0.5 mg tablet 0.5 mg PO TID PRN anxiety #15 tabs 08/25/24 Medication List: aspirin 81 mg tablet,delayed release (Ecotrin Low Strength) 81 mg PO DAILY lorazepam 0.5 mg tablet 0.5 mg PO TID PRN anxiety gabapentin 300 mg capsule 300 mg PO QID acetaminophen 500 mg capsule 1,000 mg PO DAILY PRN Headache atorvastatin 20 mg tablet 20 mg PO QPM lisinopril 20 mg tablet 20 mg PO QPM omeprazole 20 mg capsule,delayed release 20 mg PO QAM MEDICATION INSTRUCTIONS: ASK your prescriber and surgeon aspirin 81 mg tablet,delayed release (Ecotrin Low Strength) 81 mg PO DAILY Take morning of surgery With a small sip of water, OTHERWISE NOTHING TO EAT OR DRINK AFTER MIDNIGHT: lorazepam 0.5 mg tablet 0.5 mg PO TID PRN anxiety gabapentin 300 mg capsule 300 mg PO QID acetaminophen 500 mg capsule 1,000 mg PO DAILY PRN Headache omeprazole 20 mg capsule,delayed release 20 mg PO QAM Take evening before surgery lorazepam 0.5 mg tablet 0.5 mg PO TID PRN anxiety gabapentin 300 mg capsule 300 mg PO QID acetaminophen 500 mg capsule 1,000 mg PO DAILY PRN Headache atorvastatin 20 mg tablet 20 mg PO QPM lisinopril 20 mg tablet 20 mg PO QPM Other Notes If you have any questions please call us at [phone] or [phone] or [phone] or [phone]
--- NOTE | 2025-04-09 09:57 | Anesthesiology Consultation ---
Date of Service April 09, 2025 Assessment & Plan (1) Encounter for pre-operative examination: - Awaiting neurology clearance in response to workload note. Patient made aware at PAT appointment. Dr. Blevins advised nothing further is needed including regarding chronic dyspnea. Surgeon's office made aware. - neurology office visit 03/27/25 [place]: "...Facial burning: atypical scalp and facial burning paresthesias - checking MRI of brain combo...may need to restart treatment for her rosacea..." Patient expresses concern with ongoing symptoms and upcoming surgery without neurology approval. - potential difficult intubation: cervical spine stenosis/radiculopathy and h/o tongue cancer s/p "45% of tongue removed" Chart Review Chart Review: Pending: Refer to Additional Notes / Consult section and Patient seen in Pre Admission Testing Teaching & Discussion Pre-Anesthesia Teaching/Discussion Notes: Instructed NPO after midnight before surgery, except medications with 15 cc of water. Medication instructions provided according to the [facility] guidelines. History Surgery Operation Date: 05/01/25 07:30 Proposed Procedures p C5-C6 Anterior Cervical Discectomy Fusion - Jarocho Mccord MD Height/Weight Height: 5 ft 1 in Weight: 87.7 kg Allergies Allergy/AdvReac Type Severity Reaction Status Date / Time naproxen Allergy Severe TONGUE Verified 03/30/25 10:39 SWELLING Penicillins Allergy Mild SWELLING Verified 03/26/25 10:17 A CHILD oxycodone AdvReac Intermediate nausea and Verified 04/09/25 10:13 vomiting Medications Home Medications Medication Instructions Recorded Confirmed Last Taken aspirin 81 mg tablet,delayed 81 mg PO DAILY #30 tabs 09/09/18 03/30/25 Unknown release (Ecotrin Low Strength) lorazepam 0.5 mg tablet 0.5 mg PO TID PRN anxiety #15 tabs 08/25/24 03/30/25 Unknown gabapentin 300 mg capsule 300 mg PO QID 03/26/25 03/30/25 Unknown acetaminophen 500 mg capsule 1,000 mg PO DAILY PRN Headache 03/30/25 03/30/25 Unknown atorvastatin 20 mg tablet 20 mg PO QPM 03/30/25 03/30/25 Unknown lisinopril 20 mg tablet 20 mg PO QPM 03/30/25 03/30/25 Unknown omeprazole 20 mg capsule,delayed 20 mg PO QAM 03/30/25 03/30/25 Unknown release Past Medical History Medical History (Updated 04/11/25 @ 08:51 by Annelise High PA-C) Acid reflux disease Anticipated difficulty with intubation cervical spine stenosis/radiculopathy and h/o tongue cancer s/p surgery Anxiety denzel. with swallowing- due to tongue cancer dissection Cervical radiculopathy full rom Cervical spinal stenosis Claustrophobia Facial droop mild-d/t radical neck dissection (cancer)- left side is "puffy" History of anesthesia reaction with 2nd -- difficulty waking up History of transient ischemic attack (2018) no deficits Hyperlipidemia Hypertension controlled, stable per pt Malignant neoplasm of border of tongue (2004) HX- surgery- no chemo or xrt Prediabetes borderline, no meds Pressure in head having MRI 04/10/25- pt. follows with deena bender- states she started having pressure in her head that goes down to her face/teeth- started approx. 1 month ago Patient denies h/o seizures, heart attack, heart failure, blood clots/DVTs or blood transfusions. Exercise / Class Metabolic Activity II 4-5 Yardwork/Stairs/Walk up hill (shortness of breath with one flight of stairs ongoing for several years with weight gain; denies change or worsening; denies chest discomort) Past Family History Family History Mother Anxiety Depression Gallbladder disease Sister Depression Gallbladder disease Lung cancer Lung disease Ovarian cancer Denies family history of Prostate cancer Myocardial infarction Breast cancer Colorectal cancer Past Surgical History Surgical History History of section (1988) x5 - most recent 1988 History of partial hysterectomy (2000) History of radical dissection of left side of neck (2004) stage 2 tongue cancer, removed ~ 45 % of tongue and ln on left side History of surgery (2004) stage 2 tongue cancer, removed ~ 45 % of tongue and ln on left side had 2 addtional surgeries on tongue since- biopsy done in [place] and approx 2014 at [place], minor surgery to check tongue Hx of blepharoplasty (1999) Hx of colonoscopy Hx of tubal ligation (1988) S/P tooth extraction Past Anesthesia History No Family Hx of Anesthesia Complications and Other (slow to wake after second [id number] was told that spinal went high) History of PONV No Hx of Motion Sickness and History of PONV Social History Smoking Status: Never smoker Do You Dip or Chew Tobacco: No Hx Alcohol Use: Yes alcohol intake frequency: holidays/special occasions only Alcohol Intake Frequency Comment: rare in past, but hasn't in awhile Hx Substance Use: No substance use type: does not use Review of Systems Snoring, denies witnessed apneas. Patient denies chest pain, fever, chills, cough, wheezing, visual changes, wetzel e/worsening headache since seeing neurology-states is not worst headache of her life, numbness, weakness, facial changes, or palpitations. Physical Exam Vital Signs Vitals BP 138/87 P 79 TEMP 97.9 SP02 94% on RA RESP 18 Physical Patient resting comfortably in chair in no acute distress, alert and oriented, responding appropriately throughout visit Full cervical extension range of motion without pain TMD 3.5 finger breadths Mallampati Score 2 Dentition: several caps, denies chipped or loose teeth, crowns, implants or bridges Lungs: normal respiratory effort. Good air movement, clear throughout to auscultation, no adventitious breath sounds Cardiac: regular rate and rhythm, no murmurs noted Carotid arteries: negative bruit bilat Lab Results Anesthesia Preop Results Results Anesthesia Widget: WBC 5.28 K/ul (4.8-10.8) 04/09/25 Hgb 12.5 g/dl (12.0-16.0) 04/09/25 Hct 37.0 % (37.0-47.0) 04/09/25 Plt 251 K/uL (130-400) 04/09/25 Na 137 mmol/L (136-145) 04/09/25 K 4.1 mmol/L (3.5-5.1) 04/09/25 Cl 104 mmol/L (98-107) 04/09/25 CO2 25 mmol/L (21-32) 04/09/25 BUN 16 mg/dl (6-23) 04/09/25 Creat 0.78 mg/dl (0.6-1.2) 04/09/25 Glucose Level 114 mg/dl (70-99(Fasting)) H 04/09/25 PT 10.3 Seconds (9.0-12.0) 04/09/25 PTT 27 Seconds (21-31) 04/09/25 INR 0.9 (0.9-1.1) 04/09/25 HA1c 6.0 % (4.5-5.6) H 04/09/25 Blood Type A Negative 04/09/25 Antibody Screen NEGATIVE 04/09/25 Testing Electrocardiogram Date: 04/09/25 NSR, rate 74 bpm Chest X-Ray Date: 04/09/25 No acute findings. Stress Test Date: 10/28/22 MPHR 85% METS 6 Negative exercise stress echo and ECG for ischemia No significant valvular pathology Cervical Spine Date: 02/14/25 1. Mild cervical degenerative disc disease showing multilevel disc desiccation and protrusions with facet joint arthropathy, hypertrophy of the uncovertebral joints and posterior osteophytes causing neural foraminal and central canal stenosis resulting in radicular compression of varying degrees, as described above. 2. No unusual post contrast enhancement identified. 3. Indentation of the cord at C5-C6 and C6-C7 levels without evidence of myeomalacia. 4. Reversal of cervical lordotic curvature denoting spastic muscles. Slight retrolisthesis of C5 on C6 and slight anterolisthesis of C7 over T1. Other Testing Brain MRI 04/10/25 No acute intracranial abnormality. Sinuses and mastoids: There is mild mucosal thickening within the ethmoid sinuses and the left maxillary antrum. There are bilateral mastoid effusions. There is age-related involutional change noting moderate subcortical and periventricular microangiopathic disease. This has progressed from 2018. There is no hemorrhage or mass effect. There is no restricted diffusion typical for acute ischemia. No enhancing mass lesion is identified on the postcontrast images. Rojas-white matter differentiation is preserved. No extra-axial fluid collection is seen. The cerebellar tonsils are normal in configuration. Head and neck CTA 09/08/18 No evidence of hemodynamically significant carotid or vertebral artery stenosis. No evidence of dissection. 1. No intracranial aneurysm or abrupt vessel cut off. 2. Moderate atherosclerotic plaque within the bilateral cavernous carotids without significant stenosis.
[2025-05-01] MEDS: LR 15ML/HR IV SCH (06:06)
[2025-05-01] MEDS: LR 60ML/HR IV SCH (06:06)
[2025-05-01] MEDS: ACETAMINOPHEN 500 MG TAB PO SCH (06:07)
[2025-05-01] MEDS: VANCOMYCIN HCL 1,250 MG in SODIUM CHLORIDE 0.9% 250 ML IV SCH ×2 (06:11→21:52)
[2025-05-01] MEDS ORDERED: ONDANSETRON INJ 2 MG/ML 2 ML VIAL ONE (06:44)
[2025-05-01] MEDS ORDERED: DEXAMETHASONE SOD INJ 4 MG/ML VIAL ONE (06:44)
[2025-05-01] MEDS ORDERED: GLYCOPYRROLATE 0.2 MG/ML VIAL ONE (06:44)
[2025-05-01] MEDS ORDERED: PROPOFOL IV EMULSION 10 MG/ML 20 ML VIAL IV ONE (06:44)
[2025-05-01] MEDS ORDERED: ROCURONIUM BROMIDE 10 MG/ML 5 ML VIAL IV ONE ×2 (06:44→09:32)
[2025-05-01] MEDS ORDERED: MIDAZOLAM HCL 1 MG/ML 2ML VIAL ONE (06:44)
[2025-05-01] MEDS ORDERED: LIDOCAINE 2% 2 ML VIAL/AMP(20MG/ML) INFIL ONE (06:44)
[2025-05-01] MEDS ORDERED: SUGAMMADEX SODIUM 200 MG/2 ML VIAL IV ONE (06:48)
[2025-05-01] MEDS ORDERED: PROMETHAZINE HCL 6.25 MG in SODIUM CHLORIDE 0.9% 50 ML IV PRN (06:51)
[2025-05-01] MEDS ORDERED: ATROPINE SULFATE 0.1 MG/ML 10ML SYR IV PRN (06:51)
[2025-05-01] MEDS ORDERED: ONDANSETRON INJ 2 MG/ML 2 ML VIAL IV PRN (06:51)
[2025-05-01] MEDS ORDERED: HYDROmorphone INJ 2 MG/ML SYR/VIAL IV PRN (06:51)
--- NOTE | 2025-05-01 07:20 | History & Physical Bridge Note ---
Date of Service May 01, 2025 History & Physical Bridge Note I have examined the patient, reviewed the History & Physical and in the interval since the performance of the History & Physical I have noted the following changes of clinical significance: no changes noted
--- NOTE | 2025-05-01 07:22 | History & Physical Report ---
Date of Service May 01, 2025 History of Present Illness Chief Complaint: Cervical stenosis Primary Care Provider: Zoraida Viveros MD Patient returns for follow-up, she was evaluated on February 21, 2 and half weeks ago, for combination of cervical symptoms she underwent an EMG nerve conduction study on March 06 and is here for additional discussion. Her is with her, she notes continued symptoms she does take up to 4 gabapentin's at 300 mg each day which does help with her symptoms at times. She still continues to have combination of burning in the periscapular area down her left arm primarily, also to the top of her head along with axial symptoms, some weakness in the upper extremities as dictated in previous note. 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 Review of cervical MRI images from [facility] from February 14, 2025, this is my separate interpretation, this reveals the patient to have the main findings to be at the central 3 levels, there is mild canal stenosis at C4-5 with bilateral foraminal stenosis at least moderate in degree, severe at C5-6 with what I would consider is moderate at least moderate to moderate severe central stenosis, and to a lesser degree at C6-7 with more notable right foraminal stenosis, no obvious cord changes though there is some subtle differences in the cord appearance on T2. 4 views of the cervical spine taken for the February 21, 2025 appointment reveals the patient to have degenerative changes prominently seen at C5-6 and C6-7, there is relative straightening of the spine in this region, C4-5 has some limited degenerative changes present, there is no instability seen on flexion- extension. Impression: Combination of cervical stenosis both centrally and foraminally with axial and arm symptomatology as previously discussed. Plan: Today take into account that the patient has had left-sided neck surgery with node dissection and partial removal of her tongue on the left side for cancer a number of years ago, she has an upcoming routine follow-up appointment with her ENT physician, Dr. Duarte in [place], on March 26, and I told the patient that I will be planning a discussion with him after that follow-up visit relative to the cervical spine and approaches to it anteriorly. Specifically, I had a long discussion with her and the patient, we reviewed the radiographs and the MRI went over these in detail. Relative suggests consideration of the spine, I told the patient that she could try the physical therapy which she has not done so, I did also tell her that she could increase her gabapentin to 1/5 pill if it is helpful. Beyond this, due to the amount of stenosis she has centrally especially at C5-6, I am still relating that I would recommend surgical involvement, and from just a spine aspect, my recommendations would be for a anterior cervical decompression and fusion at C5-6 and C6-7. I did note that there are some changes at C4-5 but I would not want a really extended procedure any more than has to be involved relative to the central stenosis relating that the other levels might need surgical attention at some point down the line but I think the main issue is at C5-6 and C6-7. Went onto the description of the hospital and postoperative course, potential risk complications including chances of dysphagia, neurologic injury hoarseness which can occur with routine situations, this is somewhat complicated based on the fact that she has had a prior surgery as dictated above. For this reason I will have a discussion with her ENT physician after he has seen her in mid March, and then at that time decide what the best course is, as consideration for the procedure at a tertiary center may have to be considered depending on the recommendations. Allergies Allergy/AdvReac Type Severity Reaction Status Date / Time naproxen Allergy Severe TONGUE Verified 05/01/25 05:55 SWELLING Penicillins Allergy Mild SWELLING Verified 05/01/25 05:55 A CHILD oxycodone AdvReac Intermediate nausea and Verified 05/01/25 05:55 vomiting Home Medications Medication Instructions Recorded Confirmed Type aspirin 81 mg tablet,delayed 81 mg PO DAILY #30 tabs 09/09/18 05/01/25 Rx release (Ecotrin Low Strength) lorazepam 0.5 mg tablet 0.5 mg PO TID PRN anxiety #15 tabs 08/25/24 05/01/25 Rx acetaminophen 500 mg capsule 1,000 mg PO DAILY PRN Headache 03/30/25 05/01/25 History atorvastatin 20 mg tablet 20 mg PO QPM 03/30/25 05/01/25 History lisinopril 20 mg tablet 20 mg PO QPM 03/30/25 05/01/25 History omeprazole 20 mg capsule,delayed 20 mg PO QAM 03/30/25 05/01/25 History release gabapentin 300 mg capsule 300 mg PO .COMPLEX #150 caps 04/19/25 05/01/25 Rx Past Med/Surg History Problem List Encounter for pre-operative examination Cervical radiculopathy Cervical spinal stenosis Prediabetes Postmenopausal atrophic vaginitis HTN, goal below 140/90 Soft tissue mass Acid reflux disease (Acute) Anxiety (Acute) H/O tongue cancer (Acute) Occipital neuralgia (Acute) Prophylactic antibiotic (Acute) Heartburn Hyperlipidemia Leg neuralgia TIA (transient ischemic attack) Paresthesias (Acute) Weakness of left lower extremity (Acute) Medical History Anticipated difficulty with intubation Hypertension Pressure in head Prediabetes History of transient ischemic attack (2017) Claustrophobia Hyperlipidemia Acid reflux disease History of anesthesia reaction Cervical spinal stenosis Cervical radiculopathy Anxiety Malignant neoplasm of border of tongue (2004) Facial droop Surgical History Hx of colonoscopy Hx of blepharoplasty (1999) Hx of tubal ligation (1988) S/P tooth extraction History of surgery (2004) History of section (1988) History of partial hysterectomy (2000) History of radical dissection of left side of neck (2004) Family History Mother Anxiety Depression Gallbladder disease Sister Depression Gallbladder disease Lung cancer Lung disease Ovarian cancer Denies family history of Prostate cancer Myocardial infarction Breast cancer Colorectal cancer Social History Smoking Status: Never smoker Second Hand Exposure: No; Do You Dip or Chew Tobacco: No; Tobacco Cessation Education Requested by Patient: No Hx Alcohol Use: Yes Alcohol Intake Frequency: Monthly or Less Hx Substance Use: No Preferred Language: [place] Communication Ability: Effective Visual Impairment: No Limitations Hearing Ability: Normal Lap Polisher Required: No Beliefs That Will Affect Care: None marital status: Current Living Situation: Spouse current occupational status: retired 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 Physical Exam . Results & Data Results & Data Laboratory Results . Diagnostic Findings . PG Care Time/CCT Total # of Minutes Spent Total Time Spent with Patient: Total time spent is greater than 50% in coordination of care (as documented) at patient's floor/unit and/or counseling patient: Coding Level of Care Code 12888 INT INP/OBS CARE MIN
[2025-05-01] MEDS ORDERED: ePHEDrine sulfate 50 MG/5 ML SYR ONE (08:16)
[2025-05-01] MEDS: VANCOMYCIN HCL 1000MG/20ML VIAL ONE (11:00)
[2025-05-01] MEDS: GELATIN SPONGE 12-7MM ONE (11:02)
[2025-05-01] MEDS: THROMBIN 5000 UNITS KIT ONE (11:02)
[2025-05-01] MEDS: FLOSEAL HEMOSTATIC MATRIX 5ML TOP ONE (11:05)
[2025-05-01] MEDS ORDERED: METOCLOPRAMIDE HCL INJ 5 MG/ML 2 ML VIAL IV PRN (11:14)
[2025-05-01] MEDS ORDERED: DO NOT ADMINISTER FLU VACCINE PRN (11:14)
[2025-05-01] MEDS ORDERED: diphenhydrAMINE Capsule 25 MG CAP PO PRN (11:14)
[2025-05-01] MEDS ORDERED: ACETAMINOPHEN 1,000 MG/100 ML VIAL IV PRN (11:14)
[2025-05-01] MEDS ORDERED: DO NOT ADMINISTER PNEUMOCOCCAL VACCINE PRN (11:14)
[2025-05-01] MEDS ORDERED: MAGNESIUM HYDROXIDE SUSP 30 ML UDC PO PRN (11:14)
[2025-05-01] MEDS ORDERED: SOD PHOSPHATE/SOD BIPHOSPHATE ENEMA 132 ML BTL PR PRN (11:14)
[2025-05-01] MEDS ORDERED: RACEPINEPHRINE 2.25% NEBU SOLN 0.5 ML VIAL INH PRN (11:14)
[2025-05-01] MEDS ORDERED: NALOXONE HCL 0.4 MG/1 ML VIAL/CARP IV PRN (11:14)
[2025-05-01] MEDS ORDERED: FAMOTIDINE 20 MG TAB PO PRN (11:14)
[2025-05-01] MEDS ORDERED: dexAMETHasone 8 MG in SYRINGE 0 ML IV PRN (11:14)
[2025-05-01] MEDS ORDERED: ALUMINUM/MAGNESIUM SUSP 30 ML UDC PO PRN (11:14)
--- NOTE | 2025-05-01 11:14 | Post Operative Brief Note ---
PG Immediate Post Op with CF Date of Surgery May 01, 2025 Pre & Post Diagnosis Operation Date: 05/01/25 07:30 Pre-Op Diagnosis: Cervical Stenosis Post-Op Diagnosis: Cervical Stenosis I identified the patient and participated in the time-out.: Yes Procedure Operation Date: 05/01/25 07:30 Actual Procedures p C5-C6, C6-C7 Anterior Cervical Discectomy Fusion(Not Applicable) - Jarocho Mccord MD Surgeon Jarocho Mccord MD Color Checker none Estimated Blood Loss 10 Findings Consistent with Post-Op Diagnosis Drains Pruitt Catheter
[2025-05-01] MEDS ORDERED: VANCOMYCIN CONSULT ACTIVE PRN (11:21)
[2025-05-01 12:40] LABS: Anion Gap 7.0 (3-11); Blood Urea Nitrogen 12.0 mg/dl (6-23); Calcium 8.6 mg/dl (8.6-10.3); Carbon Dioxide 25.0 mmol/L (21-32); Chloride 105.0 mmol/L (98-107); Creatinine Clr Calc Pharmacy 78.5 ml/min; Glucose 162.0 mg/dl (70-99(Fasting)); Potassium 3.9 mmol/L (3.5-5.1); Sodium 137.0 mmol/L (136-145)
--- NOTE | 2025-05-01 12:45 | Anesthesiology Progress Note ---
Date of Service May 01, 2025 Anesthesia Post Procedure Vital Signs Vital Signs: Temp Pulse Pulse Resp BP Pulse Ox O2 Del Method 05/01/25 12:30 36.3 C L 71 12 146/77 H 96 Nasal Cannula 05/01/25 12:15 66 12 153/77 H 96 Nasal Cannula 05/01/25 12:05 68 12 145/80 H 96 Nasal Cannula 05/01/25 11:55 60 12 143/79 H 93 Nasal Cannula 05/01/25 11:45 60 12 150/70 H 95 Nasal Cannula 05/01/25 11:35 60 12 138/70 94 Oxymask 05/01/25 11:25 70 16 148/73 H 95 Oxymask 05/01/25 11:14 36.2 C L 72 14 135/68 96 Oxymask 05/01/25 05:58 36.9 C 80 16 114/95 95 Room Air O2 Flow Rate 05/01/25 12:30 3 05/01/25 12:15 3 05/01/25 12:05 3 05/01/25 11:55 3 05/01/25 11:45 3 05/01/25 11:35 4 05/01/25 11:25 4 05/01/25 11:14 4 05/01/25 05:58 Pain Intensity Neck: Pain Intensity: 4 Transfer of Care Handoff Completed per policy Notes Mental Status: alert / awake / arousable and participated in evaluation Patient Amnestic to Procedure: Yes Nausea / Vomiting: adequately controlled Pain: adequately controlled Airway Patency, RR, SpO2: stable & adequate BP & HR: stable & adequate Hydration State: stable & adequate Anesthetic Complications: no major complications apparent
[2025-05-01] MEDS ORDERED: LORazepam 0.5 MG TAB PO PRN (13:05)
--- NOTE | 2025-05-01 13:18 | Fluoroscopy Report ---
FL cervical 2-3V CLINICAL HISTORY: C5-C6 ACDF COMPARISON STUDY: None FLUOROSCOPY TIME: 97 seconds FLUOROSCOPY IMAGES: 11 EXPOSURE DOSE: 31 mGy FINDINGS: Fluoroscopy was provided for cervical spine surgery. IMPRESSION: Intraoperative fluoroscopy. ACT 112: Negative or not required by law. Electronically signed by: Bandar Mata M.D. 05/01/2025 1:17 PM
[2025-05-01] MEDS: LORazepam 0.5 MG TAB PO PRN (13:26)
[2025-05-01] MEDS: GABAPENTIN 300 MG CAP PO SCH (14:04)
[2025-05-01] MEDS: HYDROmorphone INJ 0.5 MG/0.5 ML SYR IV PRN (14:13)
--- NOTE | 2025-05-01 14:46 | Hospitalist Consultation ---
Date of Consultation May 01, 2025 Assessment & Plan (1) Cervical spinal stenosis: Post op day #0 from C5-C6, C6-C7 Anterior Cervical Discectomy Fusion Con't care as per ortho-spine (2) Acid reflux disease: -protonix (3) Hyperlipidemia: -atorvastatin (4) TIA (transient ischemic attack): -asa on hold 2nd to surgery (5) H/O tongue cancer: (6) Hypertension: -lisinopril (7) Anxiety: -lorazepam History of Present Illness Reason for Consultation: Post operative medical management Attending Physician: Jarocho Mccord MD History of Present Illness Pt is a 69 y/o female with pmh of HTN, HLD, GERD, cervical spinal stenosis who presents post op from C5-C6, C6-C7 Anterior Cervical Discectomy Fusion. Pt states her pain is under control. She denies any chest pain or SOB. Allergies Allergy/AdvReac Type Severity Reaction Status Date / Time naproxen Allergy Severe TONGUE Verified 05/01/25 05:55 SWELLING Penicillins Allergy Mild SWELLING Verified 05/01/25 05:55 A CHILD oxycodone AdvReac Intermediate nausea and Verified 05/01/25 05:55 vomiting Home Medications Medication Instructions Recorded Confirmed Type aspirin 81 mg tablet,delayed 81 mg PO DAILY #30 tabs 09/09/18 05/01/25 Rx release (Ecotrin Low Strength) lorazepam 0.5 mg tablet 0.5 mg PO TID PRN anxiety #15 tabs 08/25/24 05/01/25 Rx acetaminophen 500 mg capsule 1,000 mg PO DAILY PRN Headache 03/30/25 05/01/25 History atorvastatin 20 mg tablet 20 mg PO QPM 03/30/25 05/01/25 History lisinopril 20 mg tablet 20 mg PO QPM 03/30/25 05/01/25 History omeprazole 20 mg capsule,delayed 20 mg PO QAM 03/30/25 05/01/25 History release gabapentin 300 mg capsule 300 mg PO .COMPLEX #150 caps 04/19/25 05/01/25 Rx Patient History Medical History Anticipated difficulty with intubation Hypertension Pressure in head Prediabetes History of transient ischemic attack (2018) Claustrophobia Hyperlipidemia Acid reflux disease History of anesthesia reaction Cervical spinal stenosis Cervical radiculopathy Anxiety Malignant neoplasm of border of tongue (2004) Facial droop Surgical History Hx of colonoscopy Hx of blepharoplasty (1999) Hx of tubal ligation (1988) S/P tooth extraction History of surgery (2004) History of section (1988) History of partial hysterectomy (2000) History of radical dissection of left side of neck (2004) Family History Mother Anxiety Depression Gallbladder disease Sister Depression Gallbladder disease Lung cancer Lung disease Ovarian cancer Denies family history of Prostate cancer Myocardial infarction Breast cancer Colorectal cancer Social History Smoking Status: Never smoker Second Hand Exposure: No; Do You Dip or Chew Tobacco: No; Tobacco Cessation Education Requested by Patient: No Hx Alcohol Use: Yes Alcohol Intake Frequency: Monthly or Less Hx Substance Use: No Preferred Language: Yemeni Communication Ability: Effective Visual Impairment: No Limitations Hearing Ability: Normal Fence Maker Required: No Beliefs That Will Affect Care: None marital status: Current Living Situation: Spouse current occupational status: retired 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 HENT: Negative for neck pain/stiffness, headache, congestion, sore throat, swelling. EYES: Negative for discharge/pain or vision changes. RESP: Negative for cough/hemoptysis and shortness of breath. CV: Negative chest pain, difficulty breathing, palpitations. ABD: Negative pain, nausea, vomiting. : Negative increase frequency, dysuria, blood in urine or stool. MUSC: Negative for muscle aches, edema. SKIN: Negative rash, lesions/sores. NEURO: Negative headache, dizziness, weakness. Physical Exam Physical Exam: GENERAL APPEARANCE NAD, activity normal for age, well developed/ well nourished, no cyanosis, pallor, or diaphoresis. EYES lids/conjunctiva normal. EARS/NOSE/THROAT Mucous membranes moist, nares normal, lips/teeth normal uvula midline without oral pharyngeal erythema, exudate or swelling TMs normal bilaterally. No lymphangitis/lymphedema. HEAD/NECK normocephalic atraumatic, no facial trauma, neck is supple. Neck brace in place. RESPIRATORY respiratory effort normal, speaks in full sentences, no tripod position, no accessory muscle use. Lungs clear to auscultation without rhonchi, wheezes, rales CARDIAC Regular rate and rhythm, no edema. ABDOMINAL Soft, ND/NT. No evidence of fluid wave. No pulsatile masses on exam, rebound tenderness, Vera sign or pain over Mcburney's point. MUSCLES/EXTREMITIES No abnormal range of motion, no swelling. SKIN Warm, pink and dry. No rashes, dermatoses, petechiae or lesions. NEUROLOGICAL Speech is clear and appropriate. Normal level of consciousness. Gait and coordination are normal. 5/5 strength in all extremities. PSYCH Normal mood and affect. Judgement/competence is appropriate Results & Data Results & Data Vital Signs (Past 12 Hours) Vital Signs Temp Pulse Pulse Pulse Resp BP Pulse Ox 05/01/25 14:10 81 16 95 05/01/25 13:40 05/01/25 13:16 36.4 C L 70 16 154/80 H 95 05/01/25 12:45 75 12 151/74 H 96 05/01/25 12:30 36.3 C L 71 12 146/77 H 96 05/01/25 12:15 66 12 153/77 H 96 05/01/25 12:05 68 12 145/80 H 96 05/01/25 11:55 60 12 143/79 H 93 05/01/25 11:45 60 12 150/70 H 95 05/01/25 11:35 60 12 138/70 94 05/01/25 11:25 70 16 148/73 H 95 05/01/25 11:14 36.2 C L 72 14 135/68 96 05/01/25 05:58 36.9 C 80 16 114/95 95 O2 Del Method O2 Flow Rate 05/01/25 14:10 Nasal Cannula 2 05/01/25 13:40 Nasal Cannula 2 05/01/25 13:16 Nasal Cannula 2 05/01/25 12:45 Nasal Cannula 3 05/01/25 12:30 Nasal Cannula 3 05/01/25 12:15 Nasal Cannula 3 05/01/25 12:05 Nasal Cannula 3 05/01/25 11:55 Nasal Cannula 3 05/01/25 11:45 Nasal Cannula 3 05/01/25 11:35 Oxymask 4 05/01/25 11:25 Oxymask 4 05/01/25 11:14 Oxymask 4 05/01/25 05:58 Room Air PG Care Time/CCT Total # of Minutes Spent Total Time Spent with Patient: Total time spent is greater than 50% in coordination of care (as documented) at patient's floor/unit and/or counseling patient: Coding Level of Care Code 85145 IN/OBS CONSULT LVL 3,45M Diagnoses Cervical spinal stenosis M48.02 Acid reflux disease K21.9 Hyperlipidemia E78.5 TIA (transient ischemic attack) G45.9 H/O tongue cancer Z85.810 Hypertension I10 Anxiety F41.9
[2025-05-01] MEDS: ONDANSETRON INJ 2 MG/ML 2 ML VIAL IV PRN (18:39)
[2025-05-01] MEDS: HYDROmorphone INJ 1 MG/ML SYRINGE IV PRN (18:42)
[2025-05-01] MEDS: PROMETHAZINE 12.5 MG/50.5 ML BAG IV PRN (21:59)
[2025-05-01] MEDS: DOCUSATE SODIUM/SENNA 50/8.6MG TAB PO SCH (23:27)
[2025-05-01] MEDS: ATORVASTATIN 20 MG TAB PO SCH (23:27)
[2025-05-02] MEDS: POLYETHYLENE (MIRALAX) 17 GM PACK PO SCH (06:23)
[2025-05-02] MEDS: GABAPENTIN 300 MG CAP PO SCH (07:28)
[2025-05-02] MEDS: ACETAMINOPHEN 500 MG TAB PO PRN (07:33)
[2025-05-02 08:07] VITALS: TEMP 98.2
[2025-05-02 08:28] LABS: Hematocrit (blood only) 35.8 % (37.0-47.0); Hemoglobin 11.7 g/dl (12.0-16.0); Mean Corpuscular Hemoglobin 30.5 pg (25.0-34.0); Mean Corpuscular Volume 93.5 fL (80.0-100.0); Platelet Count 246 K/uL (130-400); RDW Standard Deviation 47.8 fL (36.4-46.3); Red Blood Count 3.83 M/uL (4.20-5.40); White Blood Count 13.78 K/ul (4.8-10.8)
[2025-05-02 08:45] LABS: Anion Gap 6.0 (3-11); Blood Urea Nitrogen 14.0 mg/dl (6-23); Calcium 8.6 mg/dl (8.6-10.3); Carbon Dioxide 29.0 mmol/L (21-32); Chloride 102.0 mmol/L (98-107); Creatinine Clr Calc Pharmacy 73.0 ml/min; Glucose 129.0 mg/dl (70-99(Fasting)); Potassium 4.2 mmol/L (3.5-5.1); Sodium 137.0 mmol/L (136-145)
--- NOTE | 2025-05-02 09:28 | Orthopedic Progress Note ---
Date of Service May 02, 2025 Assessment & Plan (1) Cervical spinal stenosis: * Continue Current Treatment * Disposition: home * Daily treatment: Physical Therapy/ Occupational Therapy per protocol * Weight bearing status: WBAT * Soft collar for comfort * Continue to monitor for ABLA * Pain control * Office/hospital f/u 2 weeks for progress check and staple/suture removal * Plan for discharge today pending PT/OT clearance Patient seen and examined, she notes improvement in her left arm radicular symptoms, no significant issues with swallowing, and minimal axial symptomatology. Cleared for discharge pending approval of from hospitalist and physical therapy. Subjective Active Problems: S/p C5-7 ACDF POD 1 69 y/o female s/p C5-7 ACDF. Doing well overall, pain managed and improved function. Denies fever/chills, chest pain/SOB, nausea/vomiting. Otherwise no complaints. Review of Systems All systems reviewed & are unremarkable except as noted in HPI & below. Physical Exam . * General: Alert and oriented, no acute distress * Constitutional: well-developed, well-nourished. * Respiratory: Normal respiratory effort, no distress * Gastrointestinal: No tenderness to palpation, no rigidity or guarding. * Skin: No rash or lesion. * Neurologic: Grossly normal * Musculoskeletal: Surgical dressing CDI. Cervical spine region without obvious deformity or overlying skin changes. Minimal tenderness of surgical region, otherwise no tenderness b/l UE. Neck ROM with minimal pain. AROM b/l shoulder flexion, elbow flexion/extension, wrist flexion/extension intact. Sensation intact radial/median/ulnar nerve distributions. Brisk capillary refill. Results & Data Results & Data Laboratory Results . Diagnostic Findings . PG Care Time/CCT Total # of Minutes Spent Total Time Spent with Patient: Total time spent is greater than 50% in coordination of care (as documented) at patient's floor/unit and/or counseling patient: Coding Level of Care Code 16816 Post Operative Follow-Up Diagnoses Cervical spinal stenosis M48.02
--- NOTE | 2025-05-02 09:50 | Operative Report ---
PG Post Operative Report Pre & Post Diagnosis Operation Date: 05/01/25 07:30 Pre-Op Diagnosis: Cervical Stenosis Post-Op Diagnosis: Cervical Stenosis I identified the patient and participated in the time-out.: Yes Procedure Operation Date: 05/01/25 07:30 Actual Procedures p C5-C6, C6-C7 Anterior Cervical Discectomy Fusion(Not Applicable) - Jarocho Mccord MD Surgeon Jarocho Mccord MD Belt Sander Stone none Estimated Blood Loss 10 Findings Consistent with Post-Op Diagnosis Specimens none Description of Procedure 1. C5-6 anterior cervical decompression, arthrodesis. (45779) 2. C6-7 anterior cervical decompression, arthrodesis. (14981) 3. C5-6 anterior interbody cage with fixation, ROIC, 14 x 17 x 6 mm. (26888) 4. C6-7 anterior interbody cage with fixation, ROIC, 14 x 17 x 7 mm. (42304) Patient was taken the operating room and after adequate anesthesia was carefully positioned supine on the OSI flattop table. Care was then taken for positioning for the anterior cervical procedure, a preprepped was performed followed by fluoroscopy brought in where I marked for the approximate location of the incision on the patient's left side. Prep and drape was performed, I began the procedure on the patient's left side, this was in the region of the prior cervical dissection she had previously for cancer, this appeared to be caudal to that region to some degree. Transverse incision was then made in the appropriate location just off midline to the left, from here is able to dissect out subcutaneous tissues, mobilized the platysma and then I was able to slowly gain access to the anterior cervical spine by carefully mobilizing the tissues in this region. No issues were noted, I marked the disc space, this was confirmed fluoroscopically. I then moved ahead with mobilizing the esophagus off the 2 levels to be addressed surgically, bipolar cautery was applied. Distractor pins were then inserted at the C6 and C7 levels using fluoroscopic control, retractors were set and I began at that level. Anterior annulotomy was performed followed by a thorough discectomy, I elevated the interspace using the distractor, and was able to access the posterior aspect of the interspace. High-speed bur was then used to thin and remove the majority of the posterior overhanging spondylosis, combination curette and Kerrison punch was then used to thin and remove the remaining posterior annulus and spondylosis decompressing down to the dura across the interspace. With the decompression completed I then went through trials, thorough discectomy had been performed with removal of cartilage from the endplates, I selected a size cage as noted. This was filled with fusion materials and then tapped into position, the fixation blades were then tapped into position with no issue. The inferior distractor pin was removed with Floseal and bone wax applied, a new distractor pin was then inserted at C5. The retractors were set in a similar fashion, and a similar fashion the anterior annulus was removed along with a thorough discectomy. The interspace was elevated using a distractor, and I then completed a decompression in the same fashion across the interspace posteriorly at C5-6 with removal of spondylosis and posterior disc material down to the dura out to the uncinates bilaterally. Trials were then inserted I selected the size cage as noted, and this was tapped into position with insertion of the fixation blades. Final images were obtained. The operative area was inspected no bleeding was noted, the operative area was dry, some vancomycin powder along with some Floseal was placed followed by closure was using 3-0 Vicryl sutures in layers, sterile dressing was applied, the patient tolerated procedure well was taken recovery room satisfactory condition. I attest to the content of the Intraoperative Record and any orders documented therein. Any exceptions are noted below.
[2025-05-02 09:53] VITALS: BP 132/74
[2025-05-02] MEDS: ONDANSETRON 4 MG OD TAB PO PRN (10:04)
[2025-05-02 10:45] VITALS: PULSE 58; RESP 14; O2SAT 97
== END 2025-05-02 12:25 | disposition home or self-care (01) ==
LOC: 3E 05:44 → ASU 05:44